=== PATIENT | female | born 1985 | race Caucasian/White ===

== ENCOUNTER 2024-01-26 10:22 | Outpatient (CLI) | payer OTHER, SELFPAY | END 2024-01-26 10:23 | disposition home or self-care (01) | LOC: NFLDREF 10:22 | PROVIDERS: PCP Family Medicine; Visit Provider Obstetrics & Gynecology | DX: Z01.419 Encounter for gynecological examination (general) (routine) without abnormal findings (principal); Z13.6 Encounter for screening for cardiovascular disorders | CPT/HCPCS: 80061 ==

== ENCOUNTER 2025-02-13 13:38 | Outpatient (CLI) | payer BC, SELFPAY | END 2025-02-13 13:39 | disposition home or self-care (01) | LOC: NFLDREF 13:39 | PROVIDERS: PCP Family Medicine; Visit Provider Obstetrics & Gynecology | DX: R73.03 Prediabetes (principal); D64.9 Anemia, unspecified | CPT/HCPCS: 80048 ==

== ENCOUNTER 2025-02-26 09:53 | Outpatient (CLI) | payer BC, SELFPAY ==
--- NOTE | 2025-02-26 10:15 | CRLHL7_ITS ---
For Patients: As a result of the Century Cures Act, medical imaging exams and procedure reports are released immediately into your electronic medical record. You may view this report before your referring provider. If you have questions, please contact your health care provider. INDICATION: Left leg pain TECHNIQUE: Ultrasound venous duplex lower left extremity. Compression venous exam was performed using christopher-scale, color Doppler, and spectral Doppler analysis. COMPARISON: None. FINDINGS: Sonographic imaging demonstrates the left common femoral, deep femoral, superficial femoral, popliteal, posterior tibial and greater saphenous and the contralateral right common femoral veins to be fully compressible with normal color Doppler blood flow. IMPRESSION: Normal left lower extremity venous ultrasound, no sign of deep venous thrombosis. Dictated by Juan Muhammad MD @ 02/26/2025 10:58:12 AM (Electronically Signed)
== END 2025-02-26 09:54 | disposition home or self-care (01) ==
LOC: US 09:55
PROVIDERS: Visit Provider Obstetrics & Gynecology
DX: M79.605 Pain in left leg (principal)
CPT/HCPCS: 93971